=== PATIENT | female | born 2000 | race Hispanic/Latino ===

== ENCOUNTER 2021-12-05 13:22 | Inpatient (IN) | payer MEDICAID, OTHER, SELFPAY ==
[2021-12-05 13:46] VITALS: BMI 25.7
[2021-12-05] MEDS ORDERED: Lidocaine 1% (PF) 30 ML VIAL SC PRN (14:12)
[2021-12-05] MEDS ORDERED: Carboprost 250 MCG/ML AMP IM PRN (14:12)
[2021-12-05] MEDS ORDERED: Ondansetron PF 4 MG/2 ML Vial IVP PRN ×2 (14:12→19:31)
[2021-12-05] MEDS ORDERED: Diphenoxylate HCl/Atropine Tablet PO PRN (14:12)
[2021-12-05] MEDS ORDERED: Promethazine HCl 25 MG/ML VIAL IM PRN (14:12)
[2021-12-05] MEDS ORDERED: Misoprostol 200 MCG TAB PR PRN (14:12)
[2021-12-05] MEDS ORDERED: Ibuprofen 800 MG TAB PO PRN (14:12)
[2021-12-05] MEDS ORDERED: hydrALAZINE 20 MG/ML VIAL SLOW IVP PRN ×2 (14:12→19:31)
[2021-12-05] MEDS ORDERED: Methylergonovine 0.2 MG/ML VIAL IM PRN ×2 (14:12→19:31)
[2021-12-05] MEDS ORDERED: Lactated Ringer's 1,000 ML IV SCH (14:15)
[2021-12-05] MEDS ORDERED: NS w/ Oxytocin 30 units 500 ML IV SCH ×2 (14:15→19:31)
[2021-12-05 14:49] LABS: Hemoglobin 12.6 g/dL (12.0-15.5); Mean Corpuscular HGB CONC 35.4 g/dL (32.0-36.0); Mean Corpuscular Hemoglobin 30.4 pg (27.0-33.0); Mean Platelet Volume 12.7 fl (7.4-10.4); Platelet Count 200 10x3/uL (150-450); RBC Distribution Width 14.3 % (11.5-14.5); Red Blood Cell (RBC) Count 4.14 10x6/uL (3.90-5.03); White Blood Cell (WBC) Count 10.4 10x3/uL (3.5-10.5)
[2021-12-05 15:21] LABS: Hep B Surf Ag Non-Reactive S/CO (NonReactive); Syphilis Antibody Nonreactive (Nonreactive); Syphilis Antibody Index 0.02 S/CO (<1.00 Non-Reactive)
[2021-12-05 15:23] LABS: HBSAg Index 0.14 S/CO (0-0.99)
[2021-12-05 16:10] LABS: SARS-CoV-2 NAA Rapid Test Not Detected (NotDetected)
[2021-12-05] MEDS ORDERED: Misoprostol 200 MCG TAB ONE (18:01)
[2021-12-05] MEDS ORDERED: Boostrix 0.5 ML (Tdap) VIAL IM ONE (19:31)
[2021-12-05] MEDS ORDERED: Misoprostol 200 MCG TAB VAG PRN (19:31)
[2021-12-05] MEDS ORDERED: Bisacodyl 10 MG SUPP PR PRN (19:31)
[2021-12-05] MEDS ORDERED: Preparation H Ointment 28 GM TUBE PR PRN (19:31)
[2021-12-05] MEDS ORDERED: diphenhydrAMINE 25 MG CAP PO PRN (19:31)
[2021-12-05] MEDS ORDERED: Milk Of Magnesia 30 ML UDCUP PO PRN (19:31)
[2021-12-05] MEDS ORDERED: Lanolin Ointment 7 GM TUBE TOP PRN (19:31)
[2021-12-05] MEDS: Docusate 100 MG CAP PO SCH (21:18)
[2021-12-05] MEDS ORDERED: Ibuprofen 800 MG TAB PO SCH (22:00)
[2021-12-06] MEDS: Ibuprofen 800 MG TAB PO SCH ×3 (02:13→17:55)
[2021-12-06] MEDS: Ferrous Sulfate 325 MG TAB PO SCH ×2 (07:31→15:37)
[2021-12-06] MEDS: Prenatal Vitamin 1 TAB PO SCH (08:19)
[2021-12-06] MEDS: Docusate 100 MG CAP PO SCH ×2 (08:19→21:21)
[2021-12-06] MEDS: Acetaminophen 500 MG TAB PO PRN (17:05)
[2021-12-07] MEDS: Ibuprofen 800 MG TAB PO SCH ×2 (02:12→19:15)
[2021-12-07] MEDS: Acetaminophen 500 MG TAB PO PRN (05:14)
[2021-12-07] MEDS: Ferrous Sulfate 325 MG TAB PO SCH ×2 (09:07→17:56)
[2021-12-07] MEDS: Docusate 100 MG CAP PO SCH (09:24)
[2021-12-07] MEDS: Prenatal Vitamin 1 TAB PO SCH (09:24)
[2021-12-07 11:03] VITALS: BP 110/69; TEMP 98.1
== END 2021-12-07 18:25 | disposition home or self-care (01) | DRG 807 ==
LOC: CSHLD/OP 13:22 → CSHLD 18:51 → CSHPP 20:20
PROVIDERS: ADMIT Obstetrics & Gynecology; ATTEND Obstetrics & Gynecology
PROC: 10E0XZZ Delivery of Products of Conception, External Approach (ICD-10-PCS; principal; 2021-12-05)
DX: O42.02 Full-term premature rupture of membranes, onset of labor within 24 hours of rupture (principal); Z37.0 Single live birth; Z3A.38 38 weeks gestation of pregnancy; Z20.822 Contact with and (suspected) exposure to COVID-19; O66.0 Obstructed labor due to shoulder dystocia; O71.89 Other specified obstetric trauma; O62.2 Other uterine inertia
CPT/HCPCS: 36415; 85027; 86780; 86850; 86900; 86901; 87340; 99285; J2001; J2590; U0002